=== PATIENT | female | born 1960 | race Caucasian/White ===

== ENCOUNTER 2016-11-12 15:07 | Emergency (ER) | payer SELFPAY | END 2016-11-12 15:08 | disposition left against medical advice (07) | LOC: ED 15:07 | DX: R05 Cough (principal); Z53.21 Procedure and treatment not carried out due to patient leaving prior to being seen by health care provider ==

== ENCOUNTER 2016-12-11 15:12 | Emergency (ER) | payer OTHER ==
[2016-12-11 16:17] VITALS: BP 130/89
[2016-12-11] MEDS ORDERED: DUONEB 0.5 MG-3 MG/3 ML SOLN IH ONE (16:25)
--- NOTE | 2016-12-11 16:35 | Emergency Department Report ---
ED General Adult HPI - General Chief complaint: Adult Asthma Stated complaint: ASTHMA Time Seen by Provider: 12/11/16 16:19 Source: patient Mode of arrival: Ambulatory Limitations: No Limitations - History of Present Illness Initial comments: PT c/o cough x 2 months. PT states her cough is productive and she is not having relief of symptoms with OTC medication. PT states she has a hx of asthma and does not have an inhaler. PT states she usually stops coughing when she is able to use her inhaler. PT states her nephew has also been sick recently and he needed multiple shots when he was seen. PT states she has a fear of needles and she has put off seeking medical care because of that fear. MD Complaint: cough Onset/Timin -: Gradual, month(s) Location: chest Improves with: none Associated Symptoms: denies: fever/chills, headaches, nausea/vomiting, shortness of breath Treatments Prior to Arrival: none - Related Data Previous Rx's Medication Instructions Recorded Last Taken Type ALBUTEROL NEB's [Proventil 0.083% 2.5 mg IH QID PRN #25 neb 12/11/16 Unknown Rx NEBS] Albuterol Sulfate [Ventolin HFA] 2 puff IH Q4H PRN #1 hfa.aer.ad 12/11/16 Unknown Rx Azithromycin [Zithromax] 250 mg PO DAILY #6 tablet 12/11/16 Unknown Rx Benzonatate [Tessalon Perles] 100 mg PO Q8HR PRN #12 capsule 12/11/16 Unknown Rx methylPREDNISolone [Medrol] 4 mg PO DAILY #1 tab.ds.pk 12/11/16 Unknown Rx Allergies Allergy/AdvReac Type Severity Reaction Status Date / Time No Known Allergies Allergy Unverified 12/11/16 16:09 ED Review of Systems ROS: Stated complaint: ASTHMA Other details as noted in HPI Comment: All other systems reviewed and negative Constitutional: denies: chills, fever ENT: denies: ear pain, throat pain, congestion Respiratory: cough, wheezing Cardiovascular: denies: chest pain, palpitations, syncope Gastrointestinal: denies: abdominal pain, nausea, vomiting ED Past Medical Hx - Past Medical History Previous Medical History?: Yes Hx Asthma: Yes - Surgical History Past Surgical History?: No - Social History Smoking Status: Never Smoker Substance Use Type: None - Medications Home Medications: Home Medications Medication Instructions Recorded Confirmed Last Taken Type ALBUTEROL NEB's [Proventil 0.083% 2.5 mg IH QID PRN #25 neb 12/11/16 Unknown Rx NEBS] Albuterol Sulfate [Ventolin HFA] 2 puff IH Q4H PRN #1 hfa.aer.ad 12/11/16 Unknown Rx Azithromycin [Zithromax] 250 mg PO DAILY #6 tablet 12/11/16 Unknown Rx Benzonatate [Tessalon Perles] 100 mg PO Q8HR PRN #12 capsule 12/11/16 Unknown Rx methylPREDNISolone [Medrol] 4 mg PO DAILY #1 tab.ds.pk 12/11/16 Unknown Rx ED Physical Exam - General Limitations: No Limitations General appearance: alert, in no apparent distress - Head Head exam: Present: atraumatic, normocephalic, normal inspection - Eye Eye exam: Present: normal appearance, PERRL, EOMI. Absent: conjunctival injection - ENT ENT exam: Present: normal exam, normal orophraynx, mucous membranes moist, TM's normal bilaterally, normal external ear exam - Neck Neck exam: Present: normal inspection, tenderness, full ROM - Respiratory Respiratory exam: Present: rhonchi (RLL ). Absent: respiratory distress, wheezes, chest wall tenderness, accessory muscle use, decreased breath sounds - Cardiovascular Cardiovascular Exam: Present: regular rate, normal rhythm, normal heart sounds - GI/Abdominal GI/Abdominal exam: Present: soft. Absent: tenderness - Extremities Exam Extremities exam: Present: normal inspection, full ROM - Back Exam Back exam: Present: normal inspection, full ROM. Absent: tenderness, CVA tenderness (L) - Neurological Exam Neurological exam: Present: alert, oriented X3 - Psychiatric Psychiatric exam: Present: normal affect, normal mood - Skin Skin exam: Present: warm, dry, intact, normal color ED Course Vital Signs 12/11/16 12/11/16 12/11/16 16:10 16:42 16:56 Temperature 98.5 F Pulse Rate 79 Pulse Rate [ 65 75 Anterior Bilateral Throughout] Respiratory 18 Rate Respiratory 20 20 Rate [Anterior Bilateral Throughout] Blood Pressure 130/89 O2 Sat by Pulse 100 Oximetry - Reevaluation(s) Reevaluation #1: 12/11/16 16:36 PT is aware of plan of care. Reevaluation #2: 12/11/16 17:01 PT states she is feeling better. PT aware of XR results. Will treat as complicated bronchitis given the length of symptoms and pt's hx of asthma. PT states she has nebulizer machine at home and is requesting refill of solution. PT aware RX will be given. - Pulse Oximetry Interpretation Digit-Finger Initial Pulse Oximetry Readin Actions Taken: none ED Medical Decision Making - Radiology Data Radiology results: report reviewed CXR- NAP - Differential Diagnosis asthma exacerbation, bronchitis, pna Critical Care Time: No Critical care attestation.: If time is entered above; I have spent that time in minutes in the direct care of this critically ill patient, excluding procedure time. ED Disposition Clinical Impression: Acute bronchitis Qualifiers: Bronchitis organism: unspecified organism Qualified Code(s): J20.9 - Acute bronchitis, unspecified Disposition: DISCHARGED TO HOME OR SELFCARE Is pt being admited?: No Does the pt Need Aspirin: No Condition: Stable Instructions: Asthma (ED), Acute Bronchitis (ED) Prescriptions: ALBUTEROL NEB's [Proventil 0.083% NEBS] 2.5 mg IH QID PRN #25 neb PRN Reason: Wheezing Albuterol Sulfate [Ventolin HFA] 2 puff IH Q4H PRN #1 hfa.aer.ad PRN Reason: Shortness Of Breath Azithromycin [Zithromax] 250 mg PO DAILY #6 tablet Benzonatate [Tessalon Perles] 100 mg PO Q8HR PRN #12 capsule PRN Reason: Cough methylPREDNISolone [Medrol] 4 mg PO DAILY #1 tab.ds.pk Referrals: SHERITA GARCIA MD [Primary Care Provider] - 3-5 Days BRENDA MORFIN MD [Staff Physician] - 3-5 Days [facility] [Outside] - 3-5 Days [facility] [Outside] - 3-5 Days [facility] [Outside] - 3-5 Days Time of Disposition: 17:04
--- NOTE | 2016-12-11 16:43 | XRay Report ---
Chest 2 views: History: Cough for 2 months. Findings: Normal cardiomediastinal silhouette the trachea is midline. No consolidation, pneumothorax or pleural effusion. Impression: No acute cardiopulmonary findings.
== END 2016-12-11 17:20 | disposition home or self-care (01) ==
LOC: ED 15:12
DX: J20.9 Acute bronchitis, unspecified (principal); J45.909 Unspecified asthma, uncomplicated
CPT/HCPCS: 71020; 94640; 99283

== ENCOUNTER 2021-10-07 12:57 | Emergency (ER) | payer OTHER ==
[2021-10-07 14:32] VITALS: BP 147/92
--- NOTE | 2021-10-07 14:37 | Emergency Department Report ---
ED General Adult HPI - General Chief complaint: High BP Stated complaint: HTN PUI?: No Time Seen by Provider: 10/07/21 14:34 Source: patient Mode of arrival: Ambulatory Limitations: No Limitations - History of Present Illness Initial comments: 61 yo AA comes to ER from urgent care. She had a normal work up there- 12lead and labs. They sent her here for elevated bp- which on arrival to ER is normal. She presented to urgent care p having gotten dizzy when she was exercising. That has resolved. She thinks it is related to her sinus congestion. No chest pain No sob no fever no chills pt has no focal neuro deficit; is ambulatory and nad with no symptoms at this time. Associated Symptoms: denies other symptoms. denies: confusion, chest pain, cough, diaphoresis, fever/chills, headaches, loss of appetite, malaise, nausea/vomiting, rash, seizure, shortness of breath, syncope, weakness - Related Data Allergies Allergy/AdvReac Type Severity Reaction Status Date / Time No Known Allergies Allergy Unverified 12/11/16 16:09 ED Review of Systems ROS: Stated complaint: HTN Other details as noted in HPI Comment: All other systems reviewed and negative ED Past Medical Hx - Past Medical History Previous Medical History?: Yes Hx Asthma: Yes - Surgical History Past Surgical History?: Yes Additional Surgical History: abscess - Family History Family history: other (mom dec ca and dad a/w at 91) - Social History Smoking Status: Never Smoker Substance Use Type: None ED Physical Exam - General Limitations: No Limitations General appearance: alert, in no apparent distress - Head Head exam: Present: atraumatic, normocephalic - Eye Eye exam: Present: normal appearance - ENT ENT exam: Present: mucous membranes moist - Neck Neck exam: Present: normal inspection - Respiratory Respiratory exam: Present: normal lung sounds bilaterally. Absent: respiratory distress - Cardiovascular Cardiovascular Exam: Present: regular rate, normal rhythm. Absent: systolic murmur, diastolic murmur, rubs, gallop - GI/Abdominal GI/Abdominal exam: Present: soft, normal bowel sounds - Extremities Exam Extremities exam: Present: normal inspection - Back Exam Back exam: Present: normal inspection - Neurological Exam Neurological exam: Present: alert, oriented X3 - Psychiatric Psychiatric exam: Present: normal affect, normal mood - Skin Skin exam: Present: warm, dry, intact, normal color. Absent: rash ED Course Vital Signs 10/07/21 14:28 Temperature 98.4 F Pulse Rate 71 Respiratory 18 Rate Blood Pressure 147/92 [Right] O2 Sat by Pulse 98 Oximetry ED Medical Decision Making - Medical Decision Making Vital Signs 10/07/21 14:28 Temperature 98.4 F Pulse Rate 71 Respiratory 18 Rate Blood Pressure 147/92 [Right] O2 Sat by Pulse 98 Oximetry Pt and I discussed htn- risk factors, modification, and treatment She is going to keep a log of blood pressure to take to pcp- which I've referred her to. pt has no medical problems. no hx htn and has no symptoms in the ER. D/c home with diet, activity, bp monitoring, activity and follow up instructions. She verbalizes understanding of plan of care. - Differential Diagnosis new htn Critical care attestation.: If time is entered above; I have spent that time in minutes in the direct care of this critically ill patient, excluding procedure time. ED Disposition Clinical Impression: Elevated blood pressure reading Disposition: HOME / SELF CARE / HOMELESS Is pt being admited?: No Does the pt Need Aspirin: No Condition: Stable Instructions: Preventing Hypertension, Managing Your Hypertension Additional Instructions: monitor bp as we discussed record daily take to pcp referral below to pcp drink a lot of water minimize stress avoid fatty/fried/salty food Referrals: CROW GRIFFIN MD [Staff Physician] - 3-5 Days Time of Disposition: 14:36
== END 2021-10-07 15:00 | disposition home or self-care (01) ==
LOC: ED 12:57
DX: R03.0 Elevated blood-pressure reading, without diagnosis of hypertension (principal); J45.909 Unspecified asthma, uncomplicated
CPT/HCPCS: 99281; 99282